=== PATIENT | male | born 1980 | race Caucasian/White ===

== ENCOUNTER 2022-04-01 17:27 | Emergency (ER) | payer BC, OTHER ==
[2022-04-01] MEDS ORDERED: FEVERALL 650 MG PR STA (17:48)
[2022-04-01] MEDS ORDERED: Sodium Chloride 0.9% 1000 ML 1,000 ML IV STA (17:50)
[2022-04-01] MEDS ORDERED: TYLENOL EXTRA STRENGTH 500 MG PO ONE (17:57)
[2022-04-01] MEDS ORDERED: Sodium Chloride 0.9% 1000 ML 1,000 ML ONE (17:58)
[2022-04-01] MEDS ORDERED: TYLENOL EXTRA STRENGTH 500 MG ONE (17:58)
--- NOTE | 2022-04-01 18:02 | ERPHSYRPT ---
- History of Present Illness Time Seen by Provider: 04/01/22 17:34 Source: patient Exam Limitations: no limitations Patient Subjective Stated Complaint: Cough/SOB Triage Nursing Assessment: Patient ambulated back to ED and transferred self to bed. Patient A+O X3. Patient's skin pink, warm and dry. Patient complains of SOB, cough, fever, diarrhea, headache, body aches and fatigue since . Lungs clear a/p lucrecia. Patient denies pain or discomfort. Physician History: 41 years old with history of hypertension, hyperlipidemia presented in the ER with chief complaint of cough congestion with a fever and chills since yesterday. Patient reports minimal productive cough of clears mucus. Because of repeated coughing having bilateral chest wall pain. Reports some difficulty breathing with exertion and better with resting. Has positive exposure to influenza A. Timing/Duration: day(s) (3), gradual onset, worse Cough Quality/Degree: moderate, dry cough Possible Cause: unknown cause Modifying Factors: Worsens With: coughing, exertion Associated Symptoms: fever, chills, chest pain/soreness, cough, headache, muscle aches, nasal congestion, shortness of breath, sinus infection, sore throat Allergies/Adverse Reactions: No Known Drug Allergies Allergy (Unverified 04/01/22 17:41) Hx Influenza Vaccination/Date Given: No Hx Pneumococcal Vaccination/Date Given: No Immunizations Up to Date: Yes Travel Risk - International Travel Have you traveled outside of the country in past 3 weeks: No - Coronavirus Screening Are you exhibiting any of the following symptoms?: Yes Symptoms: Fever, Cough: New Onset, Shortness of Breath, Vomiting/Diarrhea Close contact with a COVID-19 positive Pt in past 14-21 Days: No - Vaccine Status Have you recieved a Covid-19 vaccination: 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: [employer] - Vaccination Dates Date of 2cond Vaccination (if applicable): na - Review of Systems Constitutional: Fever, Chills Eyes: No Symptoms Ears, Nose, & Throat: Nose Congestion Respiratory: Cough, Dyspnea Cardiac: No Symptoms Abdominal/Gastrointestinal: Vomiting, Diarrhea Genitourinary Symptoms: No Symptoms Musculoskeletal: Myalgias Skin: No Symptoms Neurological: Headache Psychological: No Symptoms Endocrine: No Symptoms Hematologic/Lymphatic: No Symptoms Immunological/Allergic: No Symptoms - Past Medical History Pertinent Past Medical History: Yes Neurological History: No Pertinent History ENT History: No Pertinent History Cardiac History: Hypertension Respiratory History: No Pertinent History Endocrine Medical History: No Pertinent History Musculoskeletal History: No Pertinent History GI Medical History: No Pertinent History History: No Pertinent History Psycho-Social History: No Pertinent History Male Reproductive Disorders: No Pertinent History - Past Surgical History Past Surgical History: Yes Neuro Surgical History: No Pertinent History Cardiac: No Pertinent History Respiratory: No Pertinent History Gastrointestinal: No Pertinent History Genitourinary: No Pertinent History Musculoskeletal: Orthopedic Surgery Male Surgical History: No Pertinent History Other Surgical History: carpal tunnel surgery right wrist. back surgery - Social History Smoking Status: Never smoker Exposure to second hand smoke: No Drug Use: none Patient Lives Alone: No - Nursing Vital Signs Nursing Vital Signs: Initial Vital Signs Temperature 98.0 F 04/01/22 17:36 Pulse Rate 92 H 04/01/22 17:36 Respiratory Rate 22 04/01/22 17:36 Blood Pressure 100/68 04/01/22 17:36 O2 Sat by Pulse Oximetry 95 04/01/22 17:36 Pain Scale Pain Intensity 2 - Physical Exam General Appearance: no apparent distress, alert Eye Exam: PERRL/EOMI Ears, Nose, Throat Exam: normal ENT inspection, TMs normal, pharynx normal, moist mucous membranes Neck Exam: normal inspection, non-tender, supple, full range of motion Respiratory Exam: normal breath sounds, lungs clear Cardiovascular Exam: regular rate/rhythm, normal heart sounds Gastrointestinal/Abdomen Exam: soft, normal bowel sounds, No tenderness Back Exam: normal inspection, normal range of motion Extremity Exam: normal inspection, normal range of motion Neurologic Exam: alert, oriented x 3, cooperative, normal mood/affect Skin Exam: normal color SpO2 Interpretation: normal SpO2: 95 O2 Delivery: Room Air - Course EKG Interpreted by Me: RATE ([id number]), Sinus Rhythm, NORMAL AXIS, NORMAL INTERVALS, NORMAL QRS Ordered Tests: Active Orders 24 hr Category Date Time Status EKG-ER Only STAT Care 04/01/22 17:48 Completed IV Insertion STAT Care 04/01/22 17:48 Completed POCT Glucose Check STAT Care 04/01/22 17:48 Completed CHEST 1 VIEW (PORTABLE) Stat Exams 04/01/22 18:09 Completed BLOOD CULTURE Stat Lab 04/01/22 17:20 Received CBC W DIFF Stat Lab 04/01/22 17:10 Completed CMP Stat Lab 04/01/22 17:10 Completed Lactic Acid Stat Lab 04/01/22 18:00 Completed POCT GLUCOSE Stat Lab 04/01/22 17:55 Completed PROCALCITONIN Stat Lab 04/01/22 17:10 Completed TROPONIN Q4H Lab 04/01/22 17:10 Completed TROPONIN Q4H Lab 04/01/22 22:00 Ordered UA W/RFX CULTURE Stat Lab 04/01/22 19:48 Completed Medication Summary Discontinued Medications Generic Name Dose Route Start Last Admin Trade Name Juliet PRN Reason Stop Dose Admin Acetaminophen 975 mg 04/01/22 17:48 04/01/22 17:57 Acetaminophen 650 Mg Supp.Rect ME 04/01/22 17:49 Not Given STAT STA Acetaminophen 1,000 mg 04/01/22 17:57 04/01/22 18:00 Acetaminophen 500 Mg Tablet PO 04/01/22 17:58 1,000 mg STAT ONE Administration Acetaminophen Confirm 04/01/22 17:58 Acetaminophen 500 Mg Tablet Administered 04/01/22 17:59 Dose 1,000 mg .ROUTE .STK-MED ONE Sodium Chloride 1,000 mls @ 999 mls/hr 04/01/22 17:50 04/01/22 19:02 Sodium Chloride 0.9% 1000 Ml IV 04/01/22 18:50 Infused .Q1H1M STA Infusion Sodium Chloride Confirm 04/01/22 17:58 Sodium Chloride 0.9% 1000 Ml Administered 04/01/22 17:59 Dose 1,000 mls @ ud .ROUTE .STK-MED ONE Levofloxacin 500 mg 04/01/22 19:48 04/01/22 19:52 Levofloxacin 250 Mg Tab PO 04/01/22 19:49 500 mg STAT ONE Administration Levofloxacin Confirm 04/01/22 19:52 Levofloxacin 250 Mg Tab Administered 04/01/22 19:53 Dose 500 mg .ROUTE .STK-MED ONE Oseltamivir Phosphate 75 mg 04/01/22 19:12 04/01/22 19:22 Oseltamivir 75 Mg Cap PO 04/01/22 19:13 75 mg STAT ONE Administration Oseltamivir Phosphate Confirm 04/01/22 19:21 Oseltamivir 75 Mg Cap Administered 04/01/22 19:22 Dose 75 mg PO .STK-MED ONE Lab/Rad Data: Laboratory Result Diagrams 04/01/22 17:10 04/01/22 17:10 Laboratory Results 04/01/22 04/01/22 04/01/22 Range/Units 19:48 18:00 17:55 WBC (4.0-10.5) x10^3/uL RBC (4.1-5.6) x10^6/uL Hgb (12.5-18.0) g/dL Hct (42-50) % MCV (78-100) fL MCH (26-32) pg MCHC (32-36) g/dL RDW (11.5-14.0) % Plt Count (150-450) x10^3/uL MPV (7.5-11.0) fL Gran % (36.0-66.0) % Immature Gran % (Auto) (0.00-0.4) % Nucleat RBC Rel Count (0.00-0.1) % Eos # (Auto) (0-0.5) x10^3/uL Immature Gran # (Auto) (0.00-0.03) x10^3u/L Absolute Lymphs (auto) (1.0-4.6) x10^3/uL Absolute Monos (auto) (0.0-1.3) x10^3/uL Absolute Nucleated RBC (0.00-0.01) x10^3u/L Lymphocytes % (24.0-44.0) % Monocytes % (0.0-12.0) % Eosinophils % (0.00-5.0) % Basophils % (0.0-0.4) % Absolute Granulocytes (1.4-6.9) x10^3/uL Basophils # (0-0.4) x10^3/uL Sodium (137-145) mmol/L Potassium (3.5-5.1) mmol/L Chloride (98-107) mmol/L Carbon Dioxide (22-30) mmol/L Anion Gap (5-15) MEQ/L BUN (9-20) mg/dL Creatinine (0.66-1.25) mg/dL Estimated GFR ML/MIN Glucose (74-106) mg/dL POC Glucometer 116 H (74 to 106) mg/dL Lactic Acid 1.5 (0.4-2.0) Calcium (8.4-10.2) mg/dL Total Bilirubin (0.2-1.3) mg/dL AST (17-59) U/L ALT (0-50) U/L Alkaline Phosphatase (38-126) U/L Troponin I (0.000-0.034) ng/mL Serum Total Protein (6.3-8.2) g/dL Albumin (3.5-5.0) g/dL Procalcitonin (0.030-0.080) ng/mL Urinalys Dipstick Clnc MAIN LAB Urine Color DARK YELLOW (YELLOW) Urine Appearance CLEAR (CLEAR) Urine pH 5.5 (5-6) Ur Specific Garfield 1.025 (1.005-1.025) POC Urine Protein Conf 100 A (Negative) Urine Ketones TRACE A (NEGATIVE) Urine Nitrite NEGATIVE (NEGATIVE) Urine Bilirubin SMALL A (NEGATIVE) Urine Urobilinogen 0.2 (0-1) mg/dL Urine Leukocytes NEGATIVE (NEGATIVE) Urine WBC (Auto) 3-5 A (0-5) /HPF Urine RBC (Auto) 0-2 (0-2) /HPF U Hyaline Cast (Auto) 3-5 A (0-2) /LPF U Epithel Cells (Auto) NONE (FEW) /HPF Urine Bacteria (Auto) NONE (NEGATIVE) /HPF Urine RBC NEGATIVE (0-5) Ronald/ul Urine Mucus (Auto) SLIGHT A (NEGATIVE) /HPF Ur Culture Indicated? NO Urine Glucose NEGATIVE (NEGATIVE) mg/dL Influenza Type A Ag (NEGATIVE) Influenza Type B Ag (NEGATIVE) RSV (PCR) (Negative) SARS-CoV-2 (PCR) (NEGATIVE) Group A Strep Antibody (NEGATIVE) 04/01/22 04/01/22 04/01/22 Range/Units 17:20 17:20 17:10 WBC (4.0-10.5) x10^3/uL RBC (4.1-5.6) x10^6/uL Hgb (12.5-18.0) g/dL Hct (42-50) % MCV (78-100) fL MCH (26-32) pg MCHC (32-36) g/dL RDW (11.5-14.0) % Plt Count (150-450) x10^3/uL MPV (7.5-11.0) fL Gran % (36.0-66.0) % Immature Gran % (Auto) (0.00-0.4) % Nucleat RBC Rel Count (0.00-0.1) % Eos # (Auto) (0-0.5) x10^3/uL Immature Gran # (Auto) (0.00-0.03) x10^3u/L Absolute Lymphs (auto) (1.0-4.6) x10^3/uL Absolute Monos (auto) (0.0-1.3) x10^3/uL Absolute Nucleated RBC (0.00-0.01) x10^3u/L Lymphocytes % (24.0-44.0) % Monocytes % (0.0-12.0) % Eosinophils % (0.00-5.0) % Basophils % (0.0-0.4) % Absolute Granulocytes (1.4-6.9) x10^3/uL Basophils # (0-0.4) x10^3/uL Sodium (137-145) mmol/L Potassium (3.5-5.1) mmol/L Chloride (98-107) mmol/L Carbon Dioxide (22-30) mmol/L Anion Gap (5-15) MEQ/L BUN (9-20) mg/dL Creatinine (0.66-1.25) mg/dL Estimated GFR ML/MIN Glucose (74-106) mg/dL POC Glucometer (74 to 106) mg/dL Lactic Acid (0.4-2.0) Calcium (8.4-10.2) mg/dL Total Bilirubin (0.2-1.3) mg/dL AST (17-59) U/L ALT (0-50) U/L Alkaline Phosphatase (38-126) U/L Troponin I (0.000-0.034) ng/mL Serum Total Protein (6.3-8.2) g/dL Albumin (3.5-5.0) g/dL Procalcitonin 0.138 H (0.030-0.080) ng/mL Urinalys Dipstick Clnc Urine Color (YELLOW) Urine Appearance (CLEAR) Urine pH (5-6) Ur Specific Garfield (1.005-1.025) POC Urine Protein Conf (Negative) Urine Ketones (NEGATIVE) Urine Nitrite (NEGATIVE) Urine Bilirubin (NEGATIVE) Urine Urobilinogen (0-1) mg/dL Urine Leukocytes (NEGATIVE) Urine WBC (Auto) (0-5) /HPF Urine RBC (Auto) (0-2) /HPF U Hyaline Cast (Auto) (0-2) /LPF U Epithel Cells (Auto) (FEW) /HPF Urine Bacteria (Auto) (NEGATIVE) /HPF Urine RBC (0-5) Ronald/ul Urine Mucus (Auto) (NEGATIVE) /HPF Ur Culture Indicated? Urine Glucose (NEGATIVE) mg/dL Influenza Type A Ag POSITIVE (NEGATIVE) Influenza Type B Ag NEGATIVE (NEGATIVE) RSV (PCR) NEGATIVE (Negative) SARS-CoV-2 (PCR) NEGATIVE (NEGATIVE) Group A Strep Antibody NOT DETECTED (NEGATIVE) 04/01/22 04/01/22 04/01/22 Range/Units 17:10 17:10 17:10 WBC 5.7 (4.0-10.5) x10^3/uL RBC 5.36 (4.1-5.6) x10^6/uL Hgb 15.0 (12.5-18.0) g/dL Hct 46.4 (42-50) % MCV 86.6 (78-100) fL MCH 28.0 (26-32) pg MCHC 32.3 (32-36) g/dL RDW 14.0 (11.5-14.0) % Plt Count 290 (150-450) x10^3/uL MPV 10.6 (7.5-11.0) fL Gran % 53.1 (36.0-66.0) % Immature Gran % (Auto) 0.2 (0.00-0.4) % Nucleat RBC Rel Count 0.0 (0.00-0.1) % Eos # (Auto) 0.12 (0-0.5) x10^3/uL Immature Gran # (Auto) 0.01 (0.00-0.03) x10^3u/L Absolute Lymphs (auto) 2.00 (1.0-4.6) x10^3/uL Absolute Monos (auto) 0.52 (0.0-1.3) x10^3/uL Absolute Nucleated RBC 0.00 (0.00-0.01) x10^3u/L Lymphocytes % 35.1 (24.0-44.0) % Monocytes % 9.1 (0.0-12.0) % Eosinophils % 2.1 (0.00-5.0) % Basophils % 0.4 (0.0-0.4) % Absolute Granulocytes 3.03 (1.4-6.9) x10^3/uL Basophils # 0.02 (0-0.4) x10^3/uL Sodium 135 L (137-145) mmol/L Potassium 3.4 L (3.5-5.1) mmol/L Chloride 100 (98-107) mmol/L Carbon Dioxide 27 (22-30) mmol/L Anion Gap 11.4 (5-15) MEQ/L BUN 14 (9-20) mg/dL Creatinine 0.94 (0.66-1.25) mg/dL Estimated GFR > 60.0 ML/MIN Glucose 120 H (74-106) mg/dL POC Glucometer (74 to 106) mg/dL Lactic Acid (0.4-2.0) Calcium 8.5 (8.4-10.2) mg/dL Total Bilirubin 0.90 (0.2-1.3) mg/dL AST 71 H (17-59) U/L ALT 92 H (0-50) U/L Alkaline Phosphatase 83 (38-126) U/L Troponin I < 0.012 (0.000-0.034) ng/mL Serum Total Protein 7.8 (6.3-8.2) g/dL Albumin 4.2 (3.5-5.0) g/dL Procalcitonin (0.030-0.080) ng/mL Urinalys Dipstick Clnc Urine Color (YELLOW) Urine Appearance (CLEAR) Urine pH (5-6) Ur Specific Garfield (1.005-1.025) POC Urine Protein Conf (Negative) Urine Ketones (NEGATIVE) Urine Nitrite (NEGATIVE) Urine Bilirubin (NEGATIVE) Urine Urobilinogen (0-1) mg/dL Urine Leukocytes (NEGATIVE) Urine WBC (Auto) (0-5) /HPF Urine RBC (Auto) (0-2) /HPF U Hyaline Cast (Auto) (0-2) /LPF U Epithel Cells (Auto) (FEW) /HPF Urine Bacteria (Auto) (NEGATIVE) /HPF Urine RBC (0-5) Ronald/ul Urine Mucus (Auto) (NEGATIVE) /HPF Ur Culture Indicated? Urine Glucose (NEGATIVE) mg/dL Influenza Type A Ag (NEGATIVE) Influenza Type B Ag (NEGATIVE) RSV (PCR) (Negative) SARS-CoV-2 (PCR) (NEGATIVE) Group A Strep Antibody (NEGATIVE) - Progress Progress: improved Air Movement: good Progress Note: 04/01/22 19:46 Given fluids and symptomatic treatment. Patient is not in any distress. On exam lungs sound pretty clear. Has normal white count, normal lactate but has elevated procalcitonin 1.13. Chest x-ray reviewed by me revealed right-sided infiltrative process. Patient also has positive influenza A. I believe patient is initially viral etiology with some superimposed bacterial infection. We will treat with Tamiflu and Levaquin. Patient is not showing any signs of toxicity and no difficulty breathing, healthy otherwise, can be discharged with oral antibiotics along with Tamiflu and albuterol inhaler. Discussed signs symptoms of worsening needing return to ER which patient seems understanding. Stable for discharge. Blood Culture(s) Obtained: Yes Antibiotics given: Yes Counseled pt/family regarding: lab results, diagnosis, need for follow-up, rad results - Departure Departure Disposition: Home Clinical Impression: Influenza A, Pneumonia Condition: Stable Critical Care Time: No Referrals: BULMARO MATHIS MD [Primary Care Provider] - Follow up/PCP as directed (In 2 days for reevaluation) Instructions: Pneumonia, Adult (DC) Additional Instructions: Use inhaler/Tylenol/ibuprofen as needed. Follow-up with primary care for reevaluation. Return to ER if having difficulty breathing, persistent high- grade fever chills etc. Prescriptions: Albuterol Sulfate [Albuterol Sulfate Hfa] 8.5 gm IH Q6H PRN 7 Days #1 inh PRN Reason: Cough Levofloxacin [Levaquin 500 MG Tablet] 500 mg PO DAILY #9 tablet Oseltamivir 75 mg [Tamiflu 75MG Capsule] 75 mg PO BID #10 cap
[2022-04-01 18:25] LABS: Absolute Neutrophil Ct (ANC) 3.03 x10^3/uL (1.4-6.9); Basophil (Absolute #) 0.02 x10^3/uL (0-0.4); Eosinophil % 2.1 % (0.00-5.0); Eosinophil (Absolute #) 0.12 x10^3/uL (0-0.5); Hematocrit 46.4 % (42-50); Lymphocytes % 35.1 % (24.0-44.0); Mean Cell Volume 86.6 fL (78-100); Mean Corpuscular Hgb Concent. 32.3 g/dL (32-36); Mean Platelet Volume 10.6 fL (7.5-11.0); Monocyte (Absolute #) 0.52 x10^3/uL (0.0-1.3); Monocytes % 9.1 % (0.0-12.0); Neutrophil % 53.1 % (36.0-66.0); Platelet Count 290 x10^3/uL (150-450); Red Blood Count 5.36 x10^6/uL (4.1-5.6); White Blood Count 5.7 x10^3/uL (4.0-10.5)
[2022-04-01 18:38] LABS: ALBUMIN 4.2 g/dL (3.5-5.0); ALKALINE PHOSPHATASE 83 U/L (38-126); BLOOD UREA NITROGEN 14 mg/dL (9-20); CHLORIDE 100 mmol/L (98-107); Calcium 8.5 mg/dL (8.4-10.2); Carbon Dioxide 27 mmol/L (22-30); Creatinine 1 0.94 mg/dL (0.66-1.25); EST GLOMERULAR FILTRATION RATE > 60.0 ML/MIN; Glucose 120 mg/dL (74-106); SGOT/AST 71 U/L (17-59); SGPT/ALT 92 U/L (0-50); SODIUM 135 mmol/L (137-145); Total Protein 7.8 g/dL (6.3-8.2)
[2022-04-01 18:40] LABS: Potassium 3.4 mmol/L (3.5-5.1)
[2022-04-01 18:54] LABS: ANION GAP 11.4 MEQ/L (5-15)
[2022-04-01 19:08] LABS: INFLUENZA B NEGATIVE (NEGATIVE); RESPIRATORY SYNCTIAL VIRUS NEGATIVE (Negative); SARS-CoV-2 Xpert Express NEGATIVE (NEGATIVE)
[2022-04-01 19:11] LABS: INFLUENZA A POSITIVE (NEGATIVE)
[2022-04-01] MEDS ORDERED: Tamiflu 75MG Capsule PO ONE ×2 (19:12→19:21)
[2022-04-01] MEDS ORDERED: Levofloxacin 250MG Tablet PO ONE (19:48)
--- NOTE | 2022-04-01 19:51 | XRAY ---
Indication: Cough. Comparison: August 05, 2008 Portable chest demonstrates new hazy right base interstitial alveolar opacity without consolidation/large effusion. Remaining heart and lungs unremarkable. Bony thorax intact.
[2022-04-01] MEDS ORDERED: Levofloxacin 250MG Tablet ONE (19:52)
[2022-04-01 19:58] VITALS: BP 118/68; PULSE 77
[2022-04-01 20:32] LABS: Appearance CLEAR (CLEAR); Bilirubin SMALL (NEGATIVE); Dipstick done @ ? MAIN LAB; Glucose NEGATIVE (NEGATIVE); Ketones TRACE (NEGATIVE); Nitrite NEGATIVE (NEGATIVE); Ph 5.5 (5-6); Protein,Urine Dip 100 (Negative); RBC NEGATIVE Ery/ul (0-5); Specific Gravity 1.025 (1.005-1.025); Urobilinogen 0.2 mg/dL (0-1)
[2022-04-01 20:33] LABS: Mucus SLIGHT /HPF (NEGATIVE); RBC 0-2 /HPF (0-2)
[2022-04-01 20:38] LABS: Urine Cultured Indicated? NO
[2022-04-01 21:46] VITALS: O2SAT 95
== END 2022-04-01 20:07 | disposition home or self-care (01) ==
LOC: ED 17:27
DX: J10.00 Influenza due to other identified influenza virus with unspecified type of pneumonia (principal); R50.9 Fever, unspecified; R05.1 Acute cough; R09.81 Nasal congestion; I10 Essential (primary) hypertension; E78.5 Hyperlipidemia, unspecified
CPT/HCPCS: 0241U; 36000; 36415; 71045; 80053; 81015; 82947; 83605; 84145; 84484; 85025; 87040; 87651; 93005; 96360; 99284; 99291; A9270-GY